=== PATIENT | male | born 1970 | race Caucasian/White ===

== ENCOUNTER 2017-02-24 16:00 | Emergency (ER) | payer OTHER ==
[~2017-02-24] VITALS: Ht 188 cm; Wt 81.2 kg
[2017-02-24 16:21] VITALS: BP_SYST 119
--- NOTE | 2017-02-24 18:38 | NUR ---
Pt was brought to bed 4 with complaints of pain to the right throat, states hurts every time he swallows. Pt states went to urgent care on Saturday and received augmentin for parotitis, states has been getting worse every day. Pt denies fever, n/v or diarrhea. No other injuries/complaints per pt or noted.
--- NOTE | 2017-02-24 18:50 | NUR ---
Yuly franco in [facility] - 02/24/17 at 2109 by KYLEE Patient to ER bed 4 to gown for evaluation. Side rails up.
[2017-02-24] MEDS ORDERED: NACL 0.9% 1,000 ML IV ONE (19:00)
[2017-02-24] MEDS ORDERED: MORPHINE 4 MG/ML INJ. SYRINGE IVP ONE (19:00)
--- NOTE | 2017-02-24 19:00 | NUR ---
Pt in rm 4 with c/o sore throat and cough. DR FELICIANO AWARE.
[2017-02-24] MEDS ORDERED: KETOROLAC TROMETHAMINE 60 MG/2 ML VIAL IM ONE ×2 (20:45→20:52)
--- NOTE | 2017-02-24 20:45 | NUR ---
ER at bedside examining patient.
--- NOTE | 2017-02-24 21:30 | NUR ---
Patient given written and verbal discharge instructions and verbalizes understanding. ER MD discussed with patient the results and treatment provided. Patient in stable condition. ID arm band removed. IV catheter removed intact and dressing applied, no active bleeding. NO Rx given. Patient educated on pain management and to follow up with PMD. Pain Scale 0/10. Opportunity for questions provided and answered.
[2017-02-24 21:58] VITALS: BP_SYST 112
== END 2017-02-24 21:30 | disposition home or self-care (01) ==
LOC: SED 16:20
DX: J02.9 Acute pharyngitis, unspecified (principal); E10.8 Type 1 diabetes mellitus with unspecified complications
CPT/HCPCS: 70486; 96361; 96372; 96374; 99284; J1885; J2270; J7030